=== PATIENT | female | born 1980 | race Caucasian/White ===

== ENCOUNTER 2019-11-08 17:09 | Emergency (ER) | payer OTHER ==
[~2019-11-08] VITALS: Ht 165.1 cm; Wt 74.0 kg
[2019-11-08] MEDS ORDERED: fentaNYL PF VIAL 100 MCG/2 ML VIAL IVP ONE ×2 (18:00→19:00)
--- NOTE | 2019-11-08 18:11 | PHYS DOC ---
Past Medical History Past Medical History: Other Additional Past Medical Histor: FACTOR 2 BLEEDING DISORDER Past Surgical History: Smoking Status: Never Smoker Alcohol Use: None General Adult EDM: Chief Complaint: VAGINAL BLEEDING HPI: HPI: Patient is a 39 year old female who presents with 9 weeks went to her OB doctor who is a Dr Garcia. Patient states yesterday when she was at her OB doctor at the ultrasound there was no heartbeat. She states today at 1400 she began bleeding with very large clots on the side of her hand. She states she has been through numerous pads. She states she is not sure how many but numerous. Patient is now is having abdominal cramping she rates a 10 out of 10. Patient has 4 living kids and this will be her third miscarriage. Review of Systems: Review of Systems: GI: abdominal pain, denies nausea, vomiting, bloody stools or diarrhea. [] : Denies dysuria. vaginal bleeding [] Heart Score: Risk Factors: Risk Factors: DM, Current or recent (<one month) smoker, HTN, HLP, family history of CAD, obesity. Risk Scores: Score 0 - 3: 2.5% MACE over next 6 weeks - Discharge Home Score 4 - 6: 20.3% MACE over next 6 weeks - Admit for Clinical Observation Score 7 - 10: 72.7% MACE over next 6 weeks - Early Invasive Strategies Current Medications: Current Medications Medications (Trade) Dose Ordered Sig/Hailey Start Time Stop Time Status Last Admin Dose Admin Fentanyl Citrate (Fentanyl 2ml Vial) 50 mcg 1X ONCE 11/08/19 18:00 11/08/19 18:01 DC Allergies: Allergies: Allergies Coded Allergies Type Severity Reaction Last Updated Verified Beta-Blockers (Beta-Adrenergic Bloc Allergy Unknown 11/08/19 Yes magnesium Allergy Unknown 11/08/19 Yes Physical Exam: PE: Constitutional: Well developed, well nourished, no acute distress, non-toxic appearance. [] HENT: Normocephalic, atraumatic, bilateral external ears normal, oropharynx moist, no oral exudates, nose normal. [] Eyes: PERRLA, EOMI, conjunctiva normal, no discharge. [] Neck: Normal range of motion, no tenderness, supple, no stridor. [] Cardiovascular:Heart rate regular rhythm, no murmur [] Lungs & Thorax: Bilateral breath sounds clear to auscultation [] Abdomen: Bowel sounds normal, soft, no tenderness, no masses, no pulsatile masses. Moderate vaginal bleeding [] Skin: Warm, dry, no erythema, no rash. [] Back: No tenderness, no CVA tenderness. [] Extremities: No tenderness, no cyanosis, no clubbing, ROM intact, no edema. [] Neurologic: Alert and oriented X 3, normal motor function, normal sensory function, no focal deficits noted. [] Psychologic: Affect normal, judgement normal, mood normal. [] Current Patient Data: Vital Signs: Vital Signs Date Time Temp Pulse Resp B/P (MAP) Pulse Ox O2 Delivery O2 Flow Rate FiO2 11/08/19 17:16 97.6 67 18 138/81 (100) 100 Room Air 97.6 EKG: EKG: [] Radiology/Procedures: Radiology/Procedures: [] Impression: [facility] [address] [place], [place] [id number] IMAGING REPORT Signed PATIENT: ILIA BANDA ACCOUNT: [id number] : 1980 LOCATION: ER AGE: 39 SEX: F EXAM STATUS: REG ER ORD. PHYSICIAN: JIMENEZ SAMANO APRN REASON: VAGINAL BLEEDING, NO HEART BEAT YESTERDAY AT OB PROCEDURE: OB <14 WKS W/TV OB ultrasound less than 14 weeks 11/08/2019 CLINICAL HISTORY: First trimester . Vaginal bleeding. Suspected impending miscarriage. TECHNIQUE: A real-time ultrasound examination of the pelvis was performed. Multiple images were obtained. FINDINGS: The uterus is within normal limits in size and echogenicity. It measures 12.3 x 6.0 x 6.9 cm in longitudinal, transverse, and AP dimensions. The endometrial echo complex measures 1.4 cm in thickness which is within normal limits. A gestational sac is seen within the cervical canal. Within this gestational sac a structure which resembles an embryonic pole is seen. This has a CRL of 5.6 mm and corresponds to a gestational age by ultrasound of 6 weeks 2 days plus or minus a standard deviation of 5 days. No embryonic cardiac activity is seen. This finding is consistent with embryonic demise. Neither ovary is visualized. No adnexal mass is seen. A small amount of free fluid is seen within the pelvis. IMPRESSION: Findings consistent with embryonic demise as discussed above. Electronically signed by: Pete Cali MD (11/08/2019 6:27 PM) [id number] DICTATED and SIGNED BY: PETE CALI MD DATE: 11/08/19 1827 Course & Med Decision Making: Course & Med Decision Making Pertinent Labs and Imaging studies reviewed. (See chart for details) Alert and oriented. Abdomen is soft and nontender. Moderate vaginal bleeding. During pelvic exam I did remove either a large clot or a sac. Pelvic Exam: Filer Finish present Abdomen: Nontender External Genitalia: Normal Skin Speculum: Normal vaginal mucosa, bloody cervical discharge Bimanual: No adnexal masses or tenderness, No CMT Patient recieved a dose total of 100mcg Fentanyl and 4mg Morphine. Patient now states her pain has stopped. Upon rechecking patients vaginal bleeding has slowed dramatically. Patient agrees to call her OB tomorrow to let them know of what happened today. I will send her home with pain medications. [] Dragon Disclaimer: [place] Disclaimer: This electronic medical record was generated, in whole or in part, using a voice recognition dictation system. Departure Departure Impression: Primary Impression: Incomplete miscarriage Disposition: HOME, SELF-CARE Condition: STABLE Referrals: NO PCP (PCP) Patient Instructions: Incomplete Miscarriage Additional Instructions: Follow up with your OB tomorrow. Take medication with food and as prescribed. Do not operate any heavy machinery or drink any alcohol with this medication. If you begin vaginally bleeding again and soaking more than 1 pad an hour come back to the emergency room. Scripts Ondansetron (ONDANSETRON ODT) 4 Mg Tab.rapdis 1 TAB PO PRN Q6-8HRS, #16 TAB Prov: JIMENEZ SAMANO ASSEMBLY MACHINE OPERATOR 11/08/19 Hydrocodone/Apap 5-325 (NORCO 5-325 TABLET) 1 Each Tablet 1 TAB PO PRN Q6HRS PRN for PAIN, #12 TAB 0 Refills Prov: JIMENEZ SAMANO ASSEMBLY MACHINE OPERATOR 11/08/19 JIMENEZ SAMANO ASSEMBLY MACHINE OPERATOR Nov 08, 2019 18:11
[2019-11-08] MEDS ORDERED: IV NORMAL SALINE 1000ML BAG 1,000 ML IV ONE (18:15)
[2019-11-08 18:19] LABS: BASO # 0.1 x10^3/uL (0.0-0.2); BASO % 1 % (0-3); EOS % 0 % (0-3); HEMATOCRIT 43.9 % (36.0-47.0); LYMPH # 1.3 x10^3/uL (1.0-4.8); LYMPH % 11 % (24-48); MEAN CORPUSCULAR HEMOGLOBIN 30 pg (25-35); MEAN CORPUSCULAR HGB CONC 34 g/dL (31-37); MEAN CORPUSCULAR VOLUME 88 fL (79-100); MONO # 0.5 x10^3/uL (0.0-1.1); MONO % 4 % (0-9); NEUT # 9.3 x10^3/uL (1.8-7.7); NEUT % 83 % (31-73); PLATELET COUNT 202 x10^3/uL (140-400); RED BLOOD COUNT 5.01 x10^6/uL (3.50-5.40); RED CELL DISTRIBUTION WIDTH 12.4 % (11.5-14.5); WHITE BLOOD COUNT 11.2 x10^3/uL (4.0-11.0)
[2019-11-08 18:28] LABS: PROTHROMBIN TIME PATIENT 13.6 SEC (11.7-14.0)
[2019-11-08] MEDS ORDERED: diphenhydrAMINE 50 MG/ML VIAL ONE (18:28)
[2019-11-08] MEDS ORDERED: diphenhydrAMINE 50 MG/ML VIAL IVP ONE (18:30)
[2019-11-08] MEDS ORDERED: MORPHINE SULFATE 4 MG/ML VIAL. IV ONE (18:30)
--- NOTE | 2019-11-08 18:30 | RAD ---
OB ultrasound less than 14 weeks 11/08/2019 CLINICAL HISTORY: First trimester . Vaginal bleeding. Suspected impending miscarriage. TECHNIQUE: A real-time ultrasound examination of the pelvis was performed. Multiple images were obtained. FINDINGS: The uterus is within normal limits in size and echogenicity. It measures 12.3 x 6.0 x 6.9 cm in longitudinal, transverse, and AP dimensions. The endometrial echo complex measures 1.4 cm in thickness which is within normal limits. A gestational sac is seen within the cervical canal. Within this gestational sac a structure which resembles an embryonic pole is seen. This has a CRL of 5.6 mm and corresponds to a gestational age by ultrasound of 6 weeks 2 days plus or minus a standard deviation of 5 days. No embryonic cardiac activity is seen. This finding is consistent with embryonic demise. Neither ovary is visualized. No adnexal mass is seen. A small amount of free fluid is seen within the pelvis. IMPRESSION: Findings consistent with embryonic demise as discussed above. Electronically signed by: Pete Cali MD (11/08/2019 6:27 PM) [id number]
[2019-11-08 18:33] LABS: CALCIUM 9.2 mg/dL (8.5-10.1); CREATININE 0.9 mg/dL (0.6-1.0); GFR 70.5; POTASSIUM 3.6 mmol/L (3.5-5.1)
[2019-11-08 18:37] LABS: ALBUMIN 4.1 g/dL (3.4-5.0); ALBUMIN/GLOBULIN RATIO 1.3 (1.0-1.7); TOTAL BILIRUBIN 0.5 mg/dL (0.2-1.0); TOTAL PROTEIN 7.2 g/dL (6.4-8.2)
[2019-11-08] MEDS ORDERED: HYDR-3164 PO (19:49)
[2019-11-08] MEDS ORDERED: ONDA4TAB12 PO (19:49)
[2019-11-08 20:03] VITALS: BP 117/67
== END 2019-11-08 20:25 | disposition home or self-care (01) ==
LOC: ER 17:09
DX: O03.4 Incomplete spontaneous abortion without complication (principal); R10.9 Unspecified abdominal pain; Z98.890 Other specified postprocedural states; Z88.8 Allergy status to other drugs, medicaments and biological substances
CPT/HCPCS: 36415; 76801; 76817; 80053; 84702; 85025; 85610; 86850; 86900; 86901; 96374; 96375; 96376; 99285; J1200; J2270; J3010; J7030

== ENCOUNTER 2021-01-29 18:29 | Emergency (ER) | payer BC, OTHER ==
[~2021-01-29 18:29] MED LIST: HYDR-3164 PO; ONDA4TAB12 PO
== END 2021-01-29 19:10 | disposition left against medical advice (07) ==
LOC: ER 18:29
DX: M79.605 Pain in left leg (principal); Z53.21 Procedure and treatment not carried out due to patient leaving prior to being seen by health care provider